=== PATIENT | female | born 1965 | race Caucasian/White ===

== ENCOUNTER 2019-03-20 07:48 | Day surgery (SDC) | payer BC ==
[2019-03-20] VITALS (9 sets, daily range): BP systolic 94–162; BP diastolic 54–97; PULSE 68–86; RESP 15–20; Ht 165.1 cm; Wt 66.3 kg
[~2019-03-20] VITALS: Ht 165.1 cm; Wt 66.3 kg
[~2019-03-20 07:48] MED LIST: LISINOPRIL
[2019-03-20] MEDS ORDERED: LIDOCAINE 2% (SDV) 5 ML INJ ONE (09:54)
[2019-03-20] MEDS ORDERED: PROPOFOL 40 ML ONE (09:54)
[2019-03-20] MEDS ORDERED: hydrALAzine 20 MG INJ IV PRN (10:00)
[2019-03-20] MEDS ORDERED: ONDANSETRON 4 MG INJ IV PRN (10:00)
[2019-03-20] MEDS ORDERED: LABETALOL HCL 20MG INJ IV PRN (10:00)
[2019-03-20] MEDS ORDERED: PROPOFOL 20 ML ONE (10:38)
[2019-03-20] MEDS ORDERED: EPHEDrine 25 MG/5 ML SYG ONE (10:38)
== END 2019-03-20 12:04 | disposition home or self-care (01) ==
LOC: GIL 07:48
PROVIDERS: ATTEND Internal Medicine Gastroenterology
DX: Z12.11 Encounter for screening for malignant neoplasm of colon (principal); D12.2 Benign neoplasm of ascending colon; I10 Essential (primary) hypertension
CPT/HCPCS: 45385; 84703; Z7610